=== PATIENT | male | born 1930 | race Caucasian/White ===

== ENCOUNTER 2016-09-21 19:38 | Inpatient (IN) | payer MEDICARE, OTHER ==
--- NOTE | ~2016-09-21 | CO ---
Unit #: [id number] #: [id number] Patient: NINO ARCE SR. [id number] [address] [address] [id number] I MR#: [id number] NAME: NINO ARCE, . ROOM: [facility] Age: 86 Sex: M Admission Date: 09/21/2016 : 1930 Attending Physician: Steven Paul M.D. Primary Care Physician: Monique Buitrago M.D. CONSULTATION REPORT REASON FOR CONSULTATION Elevated troponin with chest pain, possible unstable angina. HISTORY OF PRESENT ILLNESS This 86-year-old male has no prior history of cardiac disease. He came yesterday evening because of short of breath. At that time, he has substernal chest pain. He was given bronchodilators, he is feeling better. He is nos pain free at this moment. He denies any chest pain at this moment, orthopnea, PND, palpitation, or syncope. His troponin at that time was 0.06. EKG also done in the ER showing sinus rhythm with nonspecific ST and T wave changes. PAST MEDICAL HISTORY Positive for COPD, hypertension, diabetes, and hyperlipidemia. PAST SURGICAL HISTORY Abdomen surgery. ALLERGIES He is allergic to nuts and Phenergan. MEDICATIONS He takes Lipitor, lisinopril, and aspirin. FAMILY HISTORY Negative for premature CAD. SOCIAL HISTORY He lives at home. Does not smoke. Does not drink. REVIEW OF SYSTEMS Positive for short of breath, wheezing, asthma. The patient also has bad arthritis and difficulty walking. He also has back pain. All other systems reviewed, they are negative. His second set of troponin was also elevated and it was 0.08. ASSESSMENT 1. The patient has chest pain with elevated troponin. Definitely, the patient is having an unstable angina or acute coronary syndrome. 2. The patient on physical exam has a clinical finding of an ejection systolic murmur with diminished aortic component suggesting significant aortic stenosis. The patient also has diabetes and hypertension and high cholesterol. Unit #: [id number] #: [id number] Patient: NINO ARCE SR. PLAN From a cardiac standpoint of view, the patient will be needing an echo to assess the severity of aortic stenosis. This patient will also need a cardiac catheterization, but that we will do may be on when he is more comfortable. I will add aspirin and statin on top of his medications. Dictated by... Christian Miner/holli TD: 09/23/2016 03:21 JOB #: [id number] CONSULTATION REPORT Page 1 of 1 X Loyd Best MD X CONSULTATION REPORT
--- NOTE | ~2016-09-21 | EKG ---
PATIENT: NINO ARCE UNIT #: [id number] Ventricular Rate: 77 BPM Atrial Rate: 77 BPM P-R Interval: 266 ms QRS Duration: 88 ms Q-T Interval: 426 ms QTC Calculation(Bezet): 482 ms P Hindman: 65 degrees Calculated R Hindman: -4 degrees Calculated T Hindman: 45 degrees Diagnosis Line: Sinus rhythm with 1st degree A-V block Diagnosis Line: Abnormal ECG Diagnosis Line: When compared with ECG of 21-SEP-2016 20:13, Diagnosis Line: (unconfirmed) Diagnosis Line: No significant change was found Diagnosis Line: Confirmed by ANA LUISA BERNAL MD ([id number]) on 09/24/2016 Diagnosis Line: 7:56:11 AM INTERPRETING MD: GABE CLAROS
--- NOTE | ~2016-09-21 | CR63 ---
[facility] A Service of [facility] & [facility] RADIOLOGY TEXT RESULTS PATIENT: NINO ARCE SR. LOCATION: [facility] 328- : 30 UNIT #: [id number] AGE: [address]: Steven Paul MD SEX: M ORDER DR: [id number] [facility] [address] [facility]. [place], [place] [address] [id number] I MR#: [id number] Acc #: [id number] NAME: NINO ARCE, . : 1930 SEX: M STUDY DATE/TIME: 09/22/2016 7:30 UNIT: [address] ROOM: [facility] STUDY DESCRIPTION: CR Chest 2 View Attending Physician: Steven Paul M.D. Ordering Physician: Sudha Villatoro M.D. Primary Care Physician: Dede Buitrago MEDICAL IMAGING REPORT This report is preliminary unless electronic signature is present EXAM PA and lateral chest INDICATIONS Shortness of breath and cough for 5 days. COMPARISON With yesterday. FINDINGS Calcified granulomas within the left base. No new infiltrates. Heart size stable. Degenerative changes thoracic spine. IMPRESSION No active disease Dictated by... Gary Kinney M.D. THIS IS AN ELECTRONICALLY VERIFIED REPORT Gary Kinney M.D. at 09/23/2016 7:41 AM PADMAJA/mahesh TD: 09/22/2016 15:15 JOB #: [id number] MEDICAL IMAGING REPORT Page 1 of 1 COPY
--- NOTE | ~2016-09-21 | HP ---
Unit #: [id number] #: [id number] Patient: NINO ARCE SR. 727148 [address] [place], [place] [address] [id number] Les MR#: [id number] NAME: NINO ARCE, SR. ROOM: 92934 Age: 86 Sex: M Admission Date: 09/21/2016 : 1930 Attending Physician: Sudha Villatoro M.D. Primary Care Physician: Dede Buitrago HISTORY AND PHYSICAL CHIEF COMPLAINT Shortness of breath, chest pain. HISTORY This pleasant 86-year-old male with AODM, hypertension, hyperlipidemia, is admitted for shortness of breath and chest pain. Patient is only a fair historian as he does have some memory issues and family is not present. He states that he was well until three days prior to admission when he developed shortness of breath with a mild nonproductive cough, experienced wheezing, but also substernal nonradiating chest pain which is not pleuritic. He denies history of cardiac disease. He presented to this emergency department this evening with stable vital signs. Chest x-ray was read as COPD but no acute disease. Initial troponin was indeterminate at 0.06, EKG does not show ischemia. In the ER he does have significant bronchospasm, is being given Solu-Medrol, Zithromax, Rocephin along with a bolus of IV fluids. PAST MEDICAL HISTORY 1. Asthma/COPD, I believe followed by Dr. Benson. 2. DJD. 3. Essential hypertension. 4. AODM. 5. Hyperlipidemia. 6. Abdominal surgery. ALLERGIES Nuts and Phenergan. HOME MEDICATIONS Home medications are written as Symbicort, Glyburide, Lipitor, lisinopril, aspirin on our T sheet although I do not have verification. FAMILY HISTORY Negative for CAD. SOCIAL HISTORY The patient lives with his . He stopped smoking in his 20s, does not drink alcohol. REVIEW OF SYSTEMS Notable for shortness of breath, chest pain, wheezing, asthma, hypertension. The patient denies any other medical problems. He is Unit #: [id number] #: [id number] Patient: POGGENBORG,NINO J SR. uncertain what type of abdominal surgery was performed. All other systems were reviewed and are negative. PHYSICAL EXAMINATION GENERAL: Pleasant 86-year-old male who is mildly tachypneic. VITAL SIGNS: Temperature 98. Pulse 82. Respirations 30. Blood pressure 145/86. O2 saturation is 93% on room air. HEENT: Eyes PERRLA, extraocular muscles are intact. Pharynx is benign. NECK: Supple, without adenopathy or thyromegaly. CHEST: Reveals expiratory wheezes throughout. CARDIAC: Normal S1 and S2, with a soft systolic murmur best heard at the apex. ABDOMEN: Bowel sounds are present. Well-healed midline scar noted. Nontender. No hepatosplenomegaly or masses. EXTREMITIES: Without edema. Pedal pulses are markedly diminished. NEUROLOGIC EXAM: Patient is awake, alert. He is fairly oriented but he does seem to be forgetful. His cranial nerves are intact. He has equal strength throughout. DIAGNOSTIC STUDIES LABORATORY: Hematocrit is 37.9, normal white count, platelet count. SMA-12: Glucose 157, potassium 3.3, lactic acid 2.2. Normal BNP. Initial troponin 0.06, second troponin 0.08. IMAGING: Chest x-ray: COPD, no acute disease. CARDIOVASCULAR: EKG sinus rhythm, rate 82, Q noted in lead III. ASSESSMENT 1. Asthma/chronic obstructive pulmonary disease exacerbation with bronchitis versus occult pneumonia. 2. Chest pain with indeterminate troponin. 3. Adult-onset diabetes mellitus. 4. Essential hypertension. 5. Hyperlipidemia. PLANS 1. Aspirin, nitroglycerin paste, repeat cardiac enzymes, obtain echocardiogram in the morning and repeat EKG in the morning. 2. Steroids, antibiotics, DuoNebs and Symbicort. 3. DVT and gastritis prophylaxis. 4. Repeat chest x-ray in the morning. 5. Sliding scale insulin. 6. Verify home medicines. 7. Consultants based on above. Dictated by Christian Pascual/cf TD: 09/21/2016 22:52 JOB #: [id number] Unit #: [id number] #: [id number] Patient: NINO ARCE SR. HISTORY AND PHYSICAL Page 1 of 1 X Sudha Villatoro MD X HISTORY AND PHYSICAL
--- NOTE | ~2016-09-21 | EKG ---
PATIENT: NINO ARCE UNIT #: [id number] Ventricular Rate: 82 BPM Atrial Rate: 82 BPM P-R Interval: 280 ms QRS Duration: 86 ms Q-T Interval: 392 ms QTC Calculation(Bezet): 457 ms P Waddington: 56 degrees Calculated R Waddington: 7 degrees Calculated T Waddington: 51 degrees Diagnosis Line: Sinus rhythm with 1st degree A-V block Diagnosis Line: Abnormal ECG Diagnosis Line: When compared with ECG of 20-AUG-2012 16:42, Diagnosis Line: No significant change was found Diagnosis Line: Confirmed by ANA LUISA BERNAL MD ([id number]) on 09/24/2016 Diagnosis Line: 7:53:14 AM INTERPRETING MD: GABE CLAROS
--- NOTE | ~2016-09-21 | CR72 ---
[facility] A Service of [facility] & [facility] RADIOLOGY TEXT RESULTS PATIENT: NINO ARCE SR. LOCATION: [facility] 328-01 : 30 UNIT #: [id number] AGE: [address]: Steven Paul MD SEX: M ORDER DR: [id number] [place] [address] [facility]. [place], [place] [address] [id number] I MR#: [id number] Acc #: [id number] NAME: NINO ARCE : 1930 SEX: M STUDY DATE/TIME: 09/21/2016 20:47 UNIT: [address] ROOM: [facility] STUDY DESCRIPTION: CR Chest Single View Portable Attending Physician: Steven Paul M.D. Ordering Physician: Ed Doctor [id number] [facility] Primary Care Physician: Monique Buitrago M.D. MEDICAL IMAGING REPORT This report is preliminary unless electronic signature is present EXAM Portable chest INDICATION Shortness of air for 4 days. FINDINGS Single portable AP view of the chest compared to 08/20/2012. Heart and mediastinal contours are unchanged. There is background COPD. No focal consolidation. IMPRESSION Background COPD. No acute findings. Dictated by... Óscar Martinez M.D. THIS IS AN ELECTRONICALLY VERIFIED REPORT Óscar Martinez M.D. at 09/22/2016 3:08 PM Jose TD: 09/22/2016 12:03 JOB #: [id number] MEDICAL IMAGING REPORT Page 1 of 1 COPY
[~2016-09-21 19:38] MED LIST: ALLERGY RELIEF PO; ASPIRIN PO; ASPIRIN81 MG PO; BENZONATATE PO; CARTIA XT PO; CLARITIN10 M1 PO; COMBIVENT INH14.7 G1 IH; COMBIVENT INH14.7 GM INH; DILTIAZEM 24HR120 M1 PO; LIPITOR PO; LIPITOR40 MG PO; LISINOPRIL PO; LISINOPRIL5 MG PO; NEXIUM PO; REGLAN PO; REGLAN10 MG PO; SYMBICORT INH; TAMIFLU75 M1 PO; ZITHROMAX PO
[2016-09-21 20:30] LABS: POC - CKMB 3.2 ng/mL (0.0-7.9); POC - TROPONIN 0.06 ng/mL (<=0.05)
[2016-09-21 20:32] LABS: BASOPHIL# 0.1 X10e3 (0-0.3); BASOPHIL% 0.7 % (0-2.5); EOSINOPHIL# 0.5 X10e3 (0-0.7); EOSINOPHIL% 5.8 % (0.0-7.0); HEMATOCRIT 37.9 % (38.0-50.0); HEMOGLOBIN 12.5 gm/dL (13.0-16.0); LYMPHOCYTE# 1.5 X10e3 (1.0-3.5); LYMPHOCYTE% 18.8 % (17.0-45.0); MEAN PLATELET VOLUME 8.1 FL (6.5-11.5); MONOCYTE# 0.5 X10e3 (0-1.0); NEUTROPHIL# 5.3 X10e3 (1.5-7.1); NEUTROPHIL% 68.7 % (40-75); PLATELET COUNT 160 X10e3 (140-420); RED BLOOD COUNT 4.03 X10e (3.90-5.60); RED CELL DISTRIBUTION WIDTH 14.7 % (11.0-15.5); WHITE BLOOD COUNT 7.7 X10e3 (4.0-10.5)
[2016-09-21 20:35] LABS: DIFF IND NO
[2016-09-21 20:53] LABS: ALBUMIN SERUM 3.7 g/dL (3.5-5.0); BILIRUBIN, DIRECT 0.1 mg/dL (0.0-0.2); BILIRUBIN,INDIRECT 0.6 mg/dL (0.0-0.9); BILIRUBIN,TOTAL 0.7 mg/dL (0.2-2.0); CALCIUM SERUM 8.8 mg/dL (8.4-10.2); GLOM FILT RATE Estimated 67.9 mL/min (>60); POTASSIUM 3.3 mmol/L (3.5-5.1); PROTEIN TOTAL SERUM 7.2 g/dL (6.0-8.3)
[2016-09-21 22:26] LABS: POC - CKMB 1.8 ng/mL (0.0-7.9); POC - TROPONIN 0.08 ng/mL (<=0.05)
[2016-09-22 00:58] LABS: BASOPHIL% 0.5 % (0-2.5); EOSINOPHIL# 0.1 X10e3 (0-0.7); EOSINOPHIL% 0.6 % (0.0-7.0); HEMATOCRIT 38.3 % (38.0-50.0); HEMOGLOBIN 12.5 gm/dL (13.0-16.0); LYMPHOCYTE# 0.5 X10e3 (1.0-3.5); LYMPHOCYTE% 5.8 % (17.0-45.0); MEAN CELL VOLUME 94.3 FL (83-96); MEAN CORPUSCULAR HEMOGLOBIN 30.9 PG (28-34); MEAN CORPUSCULAR HGB CONC 32.7 g/dL (30-36); MEAN PLATELET VOLUME 8.1 FL (6.5-11.5); MONOCYTE# 0.1 X10e3 (0-1.0); MONOCYTE% 1.1 % (3.0-12.0); NEUTROPHIL# 8.7 X10e3 (1.5-7.1); PLATELET COUNT 159 X10e3 (140-420); RED BLOOD COUNT 4.06 X10e (3.90-5.60); RED CELL DISTRIBUTION WIDTH 14.3 % (11.0-15.5); WHITE BLOOD COUNT 9.4 X10e3 (4.0-10.5)
[2016-09-22 00:59] LABS: DIFF IND NO
[2016-09-22 01:16] LABS: INR 1.1; PROTHROMBIN TIME (PATIENT) 11.6 SECONDS (10.0-11.7)
[2016-09-22 01:20] LABS: CALCIUM SERUM 8.3 mg/dL (8.4-10.2); GLOM FILT RATE Estimated 67.9 mL/min (>60); POTASSIUM 3.5 mmol/L (3.5-5.1)
[2016-09-22] MEDS ORDERED: ZESTRIL5 MG PO (09:43)
[2016-09-22] MEDS ORDERED: LIPITOR40 MG PO (09:43)
[2016-09-22] MEDS ORDERED: ASPIRIN81 MG PO (09:44)
[2016-09-23 03:40] LABS: ARTERIAL BLD GAS O2 SATURATION 95.5 % (90.0-100.0); ARTERIAL BLOOD GAS CARBOXY HB 0.3 %sat (0.0-9.0); ARTERIAL BLOOD GAS HCO3 24.4 mmol/L; ARTERIAL BLOOD GAS MET HB 1.1 %sat (0.0-2.0); ARTERIAL BLOOD GAS PCO2 39.3 mmHg (35.0-45.0); ARTERIAL BLOOD GAS PO2 89.6 mmHg (80.0-100); ARTERIAL BLOOD GAS pH 7.401 (7.350-7.450)
[2016-09-23 03:42] LABS: ARTERIAL BLOOD GAS ALLEN TEST NORMAL; ARTERIAL BLOOD GAS ART SITE RIGHT RADIAL; ARTERIAL BLOOD GAS DELIVERY NASAL CANNULA; ARTERIAL DRAW? YES
[2016-09-23 06:47] LABS: BUN/CREATININE RATIO 26.25; CALCIUM SERUM 8.5 mg/dL (8.4-10.2); CREATININE SERUM 0.8 mg/dL (0.6-1.4); GLOM FILT RATE Estimated 80.9 mL/min (>60); POTASSIUM 4.6 mmol/L (3.5-5.1)
[2016-09-23 12:35] LABS: URINE APPEARANCE CLEAR; URINE BILIRUBIN NEG (NEG); URINE BLOOD 2+ (NEG); URINE COLOR YELLOW; URINE GLUCOSE NEG (NEG); URINE KETONE NEG (NEG); URINE LEUKOCYTE ESTERASE TRACE (NEG); URINE NITRATE NEG (NEG); URINE PROTEIN NEG (NEG); URINE SPECIFIC GRAVITY 1.015 (1.003-1.035); URINE UROBILINOGEN 0.2 MG/DL (NEG)
[2016-09-23 12:38] LABS: URINE BACTERIA AUWI NEG (NEGATIVE); URINE SQUAMOUS EPITHELIAL CELL NONE SEEN /[HPF]
[2016-09-24 06:04] LABS: BUN/CREATININE RATIO 28.88; CALCIUM SERUM 8.8 mg/dL (8.4-10.2); CREATININE SERUM 0.9 mg/dL (0.6-1.4); GLOM FILT RATE Estimated 77.1 mL/min (>60); MAGNESIUM 1.9 mg/dL (1.6-3.0); POTASSIUM 4.1 mmol/L (3.5-5.1)
[2016-09-25 07:17] LABS: BUN/CREATININE RATIO 27.5; CALCIUM SERUM 8.8 mg/dL (8.4-10.2); CREATININE SERUM 0.8 mg/dL (0.6-1.4); GLOM FILT RATE Estimated 80.9 mL/min (>60); MAGNESIUM 1.9 mg/dL (1.6-3.0); POTASSIUM 3.8 mmol/L (3.5-5.1)
[2016-09-25] MEDS ORDERED: METOPROLOL TAR25 MG PO (15:01)
[2016-09-25] MEDS ORDERED: LASIX20 MG PO (15:02)
== END 2016-09-25 18:01 | disposition home health service (06) | DRG 281 ==
LOC: CED 19:38 → C3A PCU 22:30 → CEDOF 22:30 → CED 22:31 → CEDOF 22:31 → C3A PCU 22:31 → CEDOF 23:16 → C3A PCU 23:16
PROVIDERS: Emergency Medicine; Internal Medicine
PROC: B24BYZZ Ultrasonography of Heart with Aorta using Other Contrast (ICD-10-PCS; principal; 2016-09-22)
DX: I21.4 Non-ST elevation (NSTEMI) myocardial infarction (principal); J44.1 Chronic obstructive pulmonary disease with (acute) exacerbation; N39.0 Urinary tract infection, site not specified; N30.90 Cystitis, unspecified without hematuria; E11.9 Type 2 diabetes mellitus without complications; I10 Essential (primary) hypertension; R07.9 Chest pain, unspecified; E78.5 Hyperlipidemia, unspecified; Z91.018 Allergy to other foods; Z79.82 Long term (current) use of aspirin; I35.0 Nonrheumatic aortic (valve) stenosis; I44.0 Atrioventricular block, first degree; R33.9 Retention of urine, unspecified
CPT/HCPCS: 36415; 36600; 71010; 71020; 80048; 80076; 81003; 82553; 82803; 82947; 83605; 83735; 83880; 84484; 85025; 85610; 85730; 87040; 87086; 92610; 93005; 93306; 94640; 94664; 94760; 96374; 99285; G8996-GN; G8997-GN; G8998-GN; J0456; J0696; J1650; J1815; J2920; J2930

== ENCOUNTER 2016-11-13 06:04 | Inpatient (IN) | payer MEDICARE, OTHER ==
[~2016-11-13] VITALS: Ht 188 cm; Wt 75.2 kg
--- NOTE | ~2016-11-13 | CO ---
Unit #: [id number] #: [id number] Patient: NINO ARCE SR [id number] [address] [facility]. [place], [place] [address] [id number] I MR#: [id number] NAME: NINO ARCE SR ROOM: 548 Age: 86 Sex: M Admission Date: 11/13/2016 : 1930 Attending Physician: Codie Ocampo M.D. Primary Care Physician: Monique Buitrago M.D. CONSULTATION REPORT REASON FOR CONSULTATION Respiratory failure. HISTORY OF PRESENT ILLNESS The patient is an 86-year-old gentleman, who carries a diagnosis of COPD, chronic respiratory failure, using oxygen at night, who presents with a 2-day history of chest pain. His history is somewhat vague. His pain seemed to come on relatively suddenly. He could not identify any exacerbating or relieving factors. His pain worsened today and presented to the emergency room. It has subsided and when I asked him what helped he said "the medications." He did have some white mucoid secretions in prior to admission. He has had some subjective wheezing. There has been no fever, hemoptysis, or pleurisy. PAST MEDICAL HISTORY Remarkable for hospitalization in September for shortness of breath and chest pain. He was evaluated by Dr. Best at that time. He has a history of COPD, chronic respiratory failure with nocturnal oxygen. In the EHR; hypertension, diabetes, hyperlipidemia, and arthritis. MEDICATIONS At home, he really cannot tell me his medications. He says "my takes care that." The med rec lists include Lipitor, Zestril, aspirin, Lasix, Ranexa, and doxycycline. ALLERGIES To Phenergan and peanuts. SOCIAL HISTORY He quit smoking many years ago. FAMILY HISTORY No familial lung disease. REVIEW OF SYSTEMS Limited. He does have this chest pain. No definite palpitations. He denies nausea, vomiting, abdominal pain, melena, hematochezia, hematemesis, hematuria, dysuria, leg pain, or swelling. There is no history of blood clots of any sort. No headache, dizziness, fever, chills, or weight loss. PHYSICAL EXAMINATION GENERAL: Reveals a gentleman, who is elderly. Unit #: [id number] #: [id number] Patient: NINO ARCE SR VITAL SIGNS: He is afebrile. Pulse 88, respiratory rate is listed as 12 to 38, breathing about 18 at the time of the interview, blood pressure 137/68. He is 6 feet 2 inches, weight 165. HEENT: Pupils are equal, round, and reactive to light. Sclerae anicteric. Head, atraumatic. NECK: Supple. No supraclavicular or cervical adenopathy appreciated. Mucous membranes are quite dry. He has dentures in place. CHEST: Somewhat coarse prolonged expiratory phase posteriorly. No definite wheeze, stridor, and certainly no consolidation. CARDIAC: Reveals distant heart tones. Regular rate and rhythm. No pathologic murmur, rub, or gallop. ABDOMEN: Soft and nontender. No hepatomegaly or rebound. EXTREMITIES: Reveal no clubbing, cyanosis, or edema. No calf tenderness. SKIN: Dry. No acute rash. NEUROLOGIC: Grossly intact. No focal motor or sensory deficits. DIAGNOSTIC STUDIES IMAGING STUDIES: Chest x-ray is unremarkable. CT scan has been performed without contrast and show no definite pneumonia. There is some mild bronchiectasis, particularly in the left lower lobe. Calcified granuloma, left upper lobe. There is a nodular density in the left lower lobe as well. Formal report is pending. LABORATORY RESULTS: Arterial blood gas; pH is 7.4, pCO2 of 40, pO2 of 79 on 5 L. BUN is 28, creatinine is 1.3, magnesium is 1.5 and has been replaced. Troponin is 0.20. BNP is 86. Lactic acid 3.4. INR 1.0. White blood cell count 10.4, hemoglobin 11.8, platelet count 176. Urinalysis only 2 to 5 white cells, 2 to 5 red cells. Blood cultures are performed and are pending. EKG nonspecific ST-T wave changes. IMPRESSION 1. Chest pain, shortness of breath, atypical, but somewhat increased troponin. 2. Possible chronic obstructive pulmonary disease. 3. Acute respiratory failure, now requiring oxygen. 4. Acute kidney injury, likely some degree of chronic kidney disease. 5. History of chronic respiratory failure, nocturnal. 6. History of hypertension, diabetes, and hyperlipidemia. 7. Echocardiogram performed in September revealed moderate to severe aortic stenosis and somewhat elevated RVSP of 46. PLAN Maximize pulmonary status, but I doubt COPD is the primary issues. Cardiology is following and ruling out myocardial infarction, which I suspect is the major issue. Given his renal dysfunction and lack of signs of volume overload, I will hold his Lasix. I will check a D-dimer and if elevated, check lower extremity venous Dopplers and start therapeutic Lovenox. If his renal function improves, consider CT angiogram of the chest. Thank you very much for allowing me to participate in the care of the patient. Dictated by... Max Jean M.D. Unit #: [id number] #: [id number] Patient: SKUHDEEPFAUZIA KELLY,NINO JORDAN/holli TD: 11/14/2016 12:38 JOB #: [id number] CC: Monique Buitrago M.D. CONSULTATION REPORT Page 1 of 1 X Max Jean MD X CONSULTATION REPORT
--- NOTE | ~2016-11-13 | CR72 ---
[facility] A Service of [facility] & [facility] RADIOLOGY TEXT RESULTS PATIENT: NINO ARCE SR LOCATION: [facility] : 30 UNIT #: [id number] AGE: [address]: Martina Bustos MD SEX: M ORDER DR: [id number] [facility] [address] [facility]. [place], [place] [address] [id number] E MR#: [id number] Acc #: [id number] NAME: NINO ARCE SR : 1930 SEX: M STUDY DATE/TIME: 11/13/2016 6:20 UNIT: [facility] ROOM: STUDY DESCRIPTION: CR Chest Single View Portable Attending Physician: Veronika García M.D. Ordering Physician: Veronika García M.D. Primary Care Physician: Monique Buitrago M.D. MEDICAL IMAGING REPORT This report is preliminary unless electronic signature is present EXAM Portable chest, 11/13 COMPARISON 09/22/2016 HISTORY Shortness of air, cough and wheezing for 2 days. FINDINGS A portable view of the chest was obtained. The heart size and vascularity are normal and the lungs are clear except for calcified left lung granulomas. The bones are normal. IMPRESSION No active disease. Dictated by... Cesar Jones M.D. THIS IS AN ELECTRONICALLY VERIFIED REPORT Cesar Jones M.D. at 11/13/2016 1:25 PM Maddy TD: 11/13/2016 08:20 JOB #: [id number] MEDICAL IMAGING REPORT Page 1 of 1 COPY
--- NOTE | ~2016-11-13 | DS ---
Unit #: [id number] #: [id number] Patient: NINO ARCE SR [id number] [address] [address] [id number] I MR#: [id number] NAME: NINO ARCE SR ROOM: 548 Age: 86 Sex: M Admission Date: 11/13/2016 : 1930 Discharge Date: 11/15/2016 Attending Physician: Codie Ocampo M.D. Primary Care Physician: Monique Buitrago M.D. DISCHARGE SUMMARY PRINCIPAL DIAGNOSES 1. Acute hypoxic respiratory failure, now resolved. 2. Acute exacerbation of chronic obstructive pulmonary disease. 3. Acute bronchitis. 4. Acute kidney injury, prerenal, now resolved. 5. Elevated troponin secondary to demand ischemia. No evidence of myocardial infarction. 6. Anxiety. 7. Vitamin B12 deficiency with vitamin B12 level of 214. 8. Steroid-induced leukocytosis. 9. Nocturnal hypoxia. 10. Diabetes mellitus type 2. 11. Hypertension. 12. Dyslipidemia. 13. Osteoarthritis. 14. Mechanical dysphagia. 15. Thrush. CONSULTANTS 1. Dr. Jean, Pulmonology. 2. Dr. Nuñez, Cardiology. PROCEDURES 1. Chest x-ray on November 13, 2016, with hyperinflation and no other acute findings. 2. CT of the chest without contrast on November 13, 2016, again with hyperinflation and no other acute findings. Right renal cyst noted. There is an 8 mm noncalcified nodule in the right mid lobe that is stable since 2012. 3. CT angiogram of the chest on November 14, 2016, again with changes of emphysema. Mediastinal lymph nodes are noted. Old healed granulomatous disease and a benign noncalcified nodule in the right middle lobe. Bibasilar atelectasis and scarring, left greater than right. Right renal cyst noted. 4. Bilateral venous Doppler which was negative for DVT. CLINICAL HISTORY AND HOSPITAL COURSE Mr. Arce is a nice 86-year-old male who presented to the emergency department with chest pain and shortness of breath. Please refer to H and P for further details. In the emergency department, patient was found to be significantly hypoxic but only had mild wheezing upon examination. Chest x-ray was unremarkable. Creatinine was also mildly elevated at 1.3. BNP was also normal, as was white blood cell count. Patient was subsequently admitted for COPD exacerbation. Unit #: [id number] #: [id number] Patient: CLAUDE ,NINO Jean was consulted. A CT scan of the chest was done with findings as noted above. He also underwent CT angiogram of the chest ultimately which was negative for pulmonary embolism. He was placed on empiric IV steroids and antibiotics, and his respiratory status improved significantly. His associated hypoxia is now resolved, and ambulating O2 saturations are 96%. We are going to discharge him on medications as noted below. Patient also had complaints of chest pain, and Cardiology was consulted. Initial troponin was elevated at 0.2 but then trended back down. There were no EKG changes. There are no plans for any intervention, and patient again will receive medications as noted. Patient was also found to have mild dysphagia and underwent video swallow. He was found to have an osteophyte at the C3-C5 region which occasionally impacts his swallow. He is to be discharged on a slick consistency with thin liquids, and he has been instructed regarding this. This may intermittently contribute perhaps to shortness of breath if he is aspirating. However, there are no plans for intervention regarding the osteophytes. Patient today is otherwise clinically stable, ambulating, and will be discharged home. DISCHARGE CONDITION Stable. DISCHARGE STATUS Discharge to home. DISCHARGE MEDICATIONS 1. Ativan 0.25 mg p.o. q.12 hours p.r.n. for anxiety, number given 30. 2. Nystatin swish and swallow 5 mL p.o. 4 times daily for 5 days. 3. Imdur 30 mg p.o. daily with 1 refill. 4. Doxycycline 100 mg p.o. b.i.d. for 5 days. 5. Albuterol MDI 2 puffs 4 times daily p.r.n. for shortness of breath. 6. Breo Ellipta 100/5 mcg 1 puff daily. 7. Prednisone 20 mg tablets 2 tablets daily for 4 days, then discontinue. 8. Lasix 10 mg daily. 9. Lipitor 40 mg at bedtime. 10. Lisinopril 10 mg b.i.d. 11. Aspirin 81 mg daily. DISCHARGE INSTRUCTIONS 1. Patient was instructed to follow a heart-healthy diet and again should follow a slick diet with thin liquids. 2. He can increase activity as tolerated. FOLLOWUP Patient will follow up with his primary care provider, Monique Buitrago, in two weeks. Time spent on discharge today 45 minutes. Dictated by... Codie Ocampo M.D. PATSY/elisa Unit #: [id number] #: [id number] Patient: NINO ARCE SR TD: 11/17/2016 16:39 JOB #: [id number] DISCHARGE SUMMARY Page 1 of 1 X Codie Ocampo MD X DISCHARGE SUMMARY
--- NOTE | ~2016-11-13 | HP ---
Unit #: [id number] #: [id number] Patient: NINO ARCE SR [id number] [address] [id number] MR#: [id number] NAME: NINO ARCE SR ROOM: Age: Sex: M Admission Date: 11/13/2016 : 1930 Attending Physician: Veronika García M.D. Primary Care Physician: Dede Buitrago HISTORY AND PHYSICAL CHIEF COMPLAINT Shortness of air and cough. HISTORY OF PRESENT ILLNESS Mr. Arce is an 86-year-old white male who has a history of COPD, O2 dependent, wears 2 L of O2 nightly. He presents with a couple of days of a sharp, constant discomfort that is in the right chest, radiates over to the left chest, midsternal down into the abdomen. Sometimes the sharp pain is worse than other times. He has chronic shortness of air and chronic productive cough which has worsened in the last couple of days. He denies fevers, he denies chills. Positive bilateral lower extremity edema, positive dyspnea on exertion, positive orthopnea. PAST MEDICAL HISTORY 1. COPD, O2 dependent. 2. Hypertension. 3. Diabetes mellitus. 4. Dyslipidemia. 5. Degenerative joint disease. PAST SURGICAL HISTORY Abdominal surgeries. HOME MEDICATION 1. Lasix 10 mg daily. 2. Atorvastatin 40 mg daily. 3. Lisinopril 10 mg twice daily. 4. Aspirin 81 mg daily. 5. Ranexa 500 mg twice daily. 6. Doxycycline - one day of medication remains. Back in September, patient was on glyburide but currently that is not on his medication list. ALLERGIES Nuts and Phenergan. FAMILY HISTORY Negative for coronary artery disease. SOCIAL HISTORY Patient lives with his . Remote tobacco in his 20s. No alcohol, no illicit drug use. Unit #: [id number] #: [id number] Patient: NINO ARCE SR REVIEW OF SYSTEMS See HPI for sharp chest pains, shortness of air, orthopnea, lower extremity edema. Denies hematuria, denies melena. All others negative. PHYSICAL EXAM GENERAL: Chronically debilitated, elderly, white male who is tachypneic with intercostal muscle use on oxygen but in no acute distress. VITAL SIGNS: Temp 98.5, blood pressure 126/68, respirations 20. Currently on 5 L of O2. Weight is 74.84 kg. In September he was 82 kg. BMI 21. 6 feet 2 inches. HEENT: Normocephalic, atraumatic. No xanthelasma. Pupils equal, round, reactive to light. Extraocular movements intact. Jugular is full. LUNGS: Have rhonchi, crackles in the bases. Intercostal muscle use. HEART: S1, S2. No S3, S4. 2/6 murmur. Positive bowel sounds. 1+ bilateral lower extremity edema, 2+ pulses bilaterally. SKIN: No rash. SPINE: No scoliosis. LABORATORY AND RADIOLOGIC STUDIES IMAGING: Chest x-ray shows no active disease. LABORATORY: Sodium 144, potassium 3.7, chloride 107, CO2 26, BUN 28, creatinine 1.3, glucose 116, magnesium 1.5, total protein 7.2, albumin 3.8, AST 24, ALT 19, alk. phos. is 62. Brain natriuretic peptide 86. Lactic acid 1.5. PT 11.3, INR 1.0, PTT 23.4. Point of care troponin 0.05. Hemoglobin 11.8, hematocrit 35.9, white blood cell count 10.4, platelet count 176. Blood cultures have been sent, results are pending. ASSESSMENT AND PLAN 1. Acute exacerbation of COPD. We will ask pulmonary to see. We will also obtain a CT of the chest. 2. Fluid volume overload. Patient appears to have an element of congestive heart failure. Had a 2D echocardiogram done in September. We will obtain those results. 3. Atypical chest pain in a patient without any prior cardiac history and negative troponin x1. We will repeat his troponin. PLAN 1. We will consult pulmonary, Dr. Barrett. 2. CT of the chest. 3. He will stop his oral Lasix and add IV Lasix, supplement his magnesium, review his echocardiogram. Repeat troponin. We will repeat his troponin at 10:30 this morning, rule out myocardial infarction. PPI. Will give Rocephin 1 g IV x1 today only. Dr. Nuñez to follow for any further recommendations and Dr. Barrett to follow for pulmonary recommendations. Dictated by Lanny Ramirez A.P.R.N. for [facility] [place]/yoli Unit #: [id number] #: [id number] Patient: NINO ARCE SR TD: 11/13/2016 09:40 JOB #: [id number] HISTORY AND PHYSICAL Page 1 of 1 X X HISTORY AND PHYSICAL
--- NOTE | ~2016-11-13 | US84 ---
[id number] [facility] [address] [place], [place] [address] [id number] I MR#: [id number] Acc #: [id number] NAME: NINO ARCE SR : 1930 SEX: M STUDY DATE/TIME: 11/15/2016 8:15 UNIT: [id number] ROOM: 548 STUDY DESCRIPTION: US LE Veins Complete Devante Stdy Attending Physician: Codie Ocampo M.D. Ordering Physician: Codie Ocampo M.D. Primary Care Physician: Monique Buitrago M.D. MEDICAL IMAGING REPORT This report is preliminary unless electronic signature is present EXAM Bilateral lower extremity venous duplex 11/15/2016 HISTORY Shortness of breath for 2 days and elevated D-dimer 913. Evaluate for deep vein thrombosis. TECHNIQUE Venous ultrasound examination of both lower extremities was performed using grayscale, spectral Doppler and color flow Doppler imaging. FINDINGS The examination is negative. There is no evidence of deep venous thrombus from the groin to the lower calf bilaterally. Visualized greater saphenous veins are also patent. IMPRESSION Negative examination. No evidence of lower extremity deep venous thrombosis. Dictated by... Nixon Chester M.D. THIS IS AN ELECTRONICALLY VERIFIED REPORT Nixon Chester M.D. at 11/16/2016 6:36 AM [facility] TD: 11/15/2016 14:50 JOB #: [id number] MEDICAL IMAGING REPORT Page 1 of 1 COPY
--- NOTE | ~2016-11-13 | EKG ---
PATIENT: NINO ARCE UNIT #: [id number] Ventricular Rate: 70 BPM Atrial Rate: 70 BPM P-R Interval: 208 ms QRS Duration: 86 ms Q-T Interval: 476 ms QTC Calculation(Bezet): 514 ms P [place]: 114 degrees Calculated R [place]: -167 degrees Calculated T [place]: 138 degrees Diagnosis Line: Suspect arm lead reversal, interpretation Diagnosis Line: assumes no reversal Diagnosis Line: Sinus rhythm with Premature supraventricular Diagnosis Line: complexes Diagnosis Line: Right superior axis deviation Diagnosis Line: Inferior infarct (cited on or before 13-NOV-2016) Diagnosis Line: Prolonged QT Diagnosis Line: Abnormal ECG Diagnosis Line: When compared with ECG of 13-NOV-2016 22:01, Diagnosis Line: (unconfirmed) Diagnosis Line: Non-specific change in ST segment in Inferior Diagnosis Line: leads Diagnosis Line: Confirmed by POLINA KWAN MD ([id number]) on Diagnosis Line: 11/15/2016 4:57:05 PM INTERPRETING MD: BRUNILDA
--- NOTE | ~2016-11-13 | HP ---
Unit #: [id number] #: [id number] Patient: CLAUDE KELLY,NINO Reyes X Martina Bustos HISTORY AND PHYSICAL
--- NOTE | ~2016-11-13 | CT16 ---
[facility] A Service of [facility] RADIOLOGY TEXT RESULTS PATIENT: NINO ARCE SR LOCATION: [facility] 54-01 : 30 UNIT #: [id number] AGE: [address]: Codie Ocampo MD SEX: M ORDER DR: [id number] [facility] [address] [facility]. [place], [place] [address] [id number] I MR#: [id number] #: [id number] NAME: NINO ARCE SR : 1930 SEX: M STUDY DATE/TIME: 11/14/2016 14:57 UNIT: [facility] ROOM: [facility] STUDY DESCRIPTION: CT Angio Chest for PE Attending Physician: Codie Ocampo M.D. Ordering Physician: Max Jean M.D. Primary Care Physician: Dede Buitrago MEDICAL IMAGING REPORT This report is preliminary unless electronic signature is present EXAM CT of the chest PE protocol with contrast 11/14/2016 INDICATIONS Acute respiratory failure in a 86-year-old male, short of air for 2 days. Elevated D-dimer. TECHNIQUE Contrast enhanced CT scan of the chest PE protocol was performed. Sagittal and coronal 3-D reformats were performed. This CT exam was performed with one or more of the following radiation dose reduction techniques: automatic control, adjustment of mA and/or kV according to patient size, and iterative reconstruction. COMPARISON Noncontrast CT chest same date [address] exam was performed with one or more of the following radiation dose reduction techniques: automatic control, adjustment of mA and/or kV according to patient size, and iterative reconstruction. FINDINGS CT CHEST: There is beam hardening artifact and motion. IV bolus adequate. Aorta demonstrates atherosclerotic change. No dissection. No distinct aneurysm. Major branch vessels from the aortic arch patent. There is no evidence of acute pulmonary embolus in the central pulmonary arterial tree. Included thyroid unremarkable. Probable reactive mediastinal nodes and hilar nodes. Largest right hilar node measures 12 mm. No pericardial effusion with only trace pericardial fluid or thickening at the cardiac apex. There is no axillary adenopathy. Included upper abdomen demonstrates an incidental right renal cyst. The lungs demonstrate emphysema. There is atelectasis and scarring in the STS. [facility] A Service of [facility] RADIOLOGY TEXT RESULTS PATIENT: NINO ARCE SR LOCATION: [facility] 548-01 : 30 UNIT #: [id number] AGE: [address]: Codie Ocampo MD SEX: M ORDER DR: lower lobes. No effusion. There is old healed granulomatous disease. No evidence of pneumonia. There is a subpleural noncalcified nodule in the right middle lobe. This measures about 5 mm. It is unchanged to smaller dating back to 2012 and therefore benign. There are secretions in the mainstem bronchus on the left which may reflect mucus. No pneumothorax. Osseous structures demonstrate thoracic kyphosis and spondylosis. Imaging features of the anterior bridging osteophytes may reflect DISH or ankylosing spondylitis in the appropriate clinical context. IMPRESSION 1. No aortic aneurysm or dissection. 2. No PE. 3. Reactive-appearing mediastinal nodes. Emphysema with old healed granulomatous disease and a benign noncalcified nodule in the right middle lobe dating back to 2012. 4. Basilar atelectasis and scarring left greater than right. 5. Upper abdomen demonstrates a right renal cyst. Dictated by... Mikey Crane M.D. THIS IS AN ELECTRONICALLY VERIFIED REPORT Mikey Crane M.D. at 11/15/2016 11:23 PM JOSEFINA/mahesh TD: 11/15/2016 04:19 JOB #: [id number] MEDICAL IMAGING REPORT Page 1 of 1 COPY
--- NOTE | ~2016-11-13 | EKG ---
PATIENT: NINO ARCE UNIT #: [id number] Ventricular Rate: 72 BPM Atrial Rate: 72 BPM P-R Interval: 238 ms QRS Duration: 88 ms Q-T Interval: 434 ms QTC Calculation(Bezet): 475 ms P [place]: 66 degrees Calculated R [place]: 3 degrees Calculated T [place]: 51 degrees Diagnosis Line: Sinus rhythm with 1st degree A-V block Diagnosis Line: Borderline ECG Diagnosis Line: When compared with ECG of 13-NOV-2016 06:14, Diagnosis Line: ST no longer depressed in Anterior leads Diagnosis Line: Confirmed by POLINA KWAN MD ([id number]) on Diagnosis Line: 11/15/2016 4:59:42 PM INTERPRETING MD: BRUNILDA
--- NOTE | ~2016-11-13 | EKG ---
PATIENT: NINO ARCE UNIT #: [id number] Ventricular Rate: 97 BPM Atrial Rate: 97 BPM P-R Interval: 248 ms QRS Duration: 86 ms Q-T Interval: 368 ms QTC Calculation(Bezet): 467 ms P [place]: 78 degrees Calculated R [place]: 24 degrees Calculated T [place]: 62 degrees Diagnosis Line: Sinus rhythm with marked sinus arrhythmia with 1st Diagnosis Line: degree A-V block Diagnosis Line: Nonspecific ST abnormality Inferior leads Diagnosis Line: Abnormal ECG Diagnosis Line: No previous ECGs available Diagnosis Line: Confirmed by ANA LUISA BERNAL MD ([id number]) on 11/13/2016 Diagnosis Line: 5:51:07 PM INTERPRETING MD: GABE CLAROS
--- NOTE | ~2016-11-13 | CT57 ---
[facility] A Service [facility] RADIOLOGY TEXT RESULTS PATIENT: NINO ARCE SR LOCATION: [facility] : 30 UNIT #: [id number] AGE: [address]: Martina Bustos MD SEX: M ORDER DR: [id number] [place] [facility]. [place], [place] [address] [id number] I MR#: [id number] Acc #: [id number] NAME: NINO ARCE SR : 1930 SEX: M STUDY DATE/TIME: 11/13/2016 11:36 UNIT: [facility] ROOM: [id number] STUDY DESCRIPTION: CT Chest Wo Cont Attending Physician: Martina Bustos M.D. Ordering Physician: Veronika García M.D. Primary Care Physician: Monique Buitrago M.D. MEDICAL IMAGING REPORT This report is preliminary unless electronic signature is present EXAM CT scan of the chest without contrast. HISTORY Short of air starting this morning. COMPARISON 03/26/2012 TECHNIQUE Axial 5-mm images were obtained through the chest without contrast. Sagittal and coronal reconstructions were generated. This CT exam was performed with one or more of the following radiation dose reduction techniques: automatic exposure control, adjustment of mA and/or kV according to patient size, and iterative reconstruction. FINDINGS The lungs are clear, except for calcified granulomas. The thyroid gland is normal. The aorta is normal in size. There is no mediastinal or hilar adenopathy. The visualized portions of the upper abdomen are unremarkable, except for a right renal cyst that measures 4.2 cm in diameter. The bones show degenerative changes. IMPRESSION 1. No active disease. 2. Right renal cyst. 3. There is actually 1 noncalcified nodule, and it is in the right mid lobe and measures 8 mm in diameter. It is unchanged from 2012. Dictated by... Cesar Jones M.D. [facility] A Service [facility] RADIOLOGY TEXT RESULTS PATIENT: NINO ARCE SR LOCATION: [facility] [address]-21 : 30 UNIT #: [id number] AGE: [address]: Martina Bustos MD SEX: M ORDER DR: THIS IS AN ELECTRONICALLY VERIFIED REPORT Cesar Jones M.D. at 11/13/2016 1:26 PM [facility] TD: 11/13/2016 13:22 JOB #: [id number] MEDICAL IMAGING REPORT Page 1 of 1 COPY
--- NOTE | ~2016-11-13 | EKG ---
PATIENT: NINO ARCE UNIT #: [id number] Ventricular Rate: 93 BPM Atrial Rate: 100 BPM QRS Duration: 74 ms Q-T Interval: 416 ms QTC Calculation(Bezet): 517 ms Calculated R [place]: -166 degrees Calculated T [place]: 157 degrees Diagnosis Line: Suspect arm lead reversal, interpretation Diagnosis Line: assumes no reversal Diagnosis Line: Normal sinus rhythm Diagnosis Line: Right superior axis deviation Diagnosis Line: Prolonged QT Diagnosis Line: Abnormal ECG Diagnosis Line: When compared with ECG of 13-NOV-2016 22:01, Diagnosis Line: (unconfirmed) Diagnosis Line: Non-specific change in ST segment in Inferior Diagnosis Line: leads Diagnosis Line: Confirmed by POLINA KWAN MD ([id number]) on Diagnosis Line: 11/15/2016 4:56:11 PM INTERPRETING MD: BRUNILDA
[~2016-11-13 06:04] MED LIST changes: +LASIX20 MG PO; +METOPROLOL TAR25 MG PO; +ZESTRIL5 MG PO
[2016-11-13 06:31] LABS: BASOPHIL# 0.1 X10e3 (0-0.3); BASOPHIL% 0.9 % (0-2.5); EOSINOPHIL# 1.4 X10e3 (0-0.7); EOSINOPHIL% 13.4 % (0.0-7.0); HEMATOCRIT 35.9 % (38.0-50.0); HEMOGLOBIN 11.8 gm/dL (13.0-16.0); LYMPHOCYTE# 2.3 X10e3 (1.0-3.5); LYMPHOCYTE% 22.5 % (17.0-45.0); MEAN CELL VOLUME 94.4 FL (83-96); MEAN CORPUSCULAR HEMOGLOBIN 31.1 PG (28-34); MEAN CORPUSCULAR HGB CONC 32.9 g/dL (30-36); MEAN PLATELET VOLUME 8.2 FL (6.5-11.5); MONOCYTE# 0.6 X10e3 (0-1.0); MONOCYTE% 5.8 % (3.0-12.0); NEUTROPHIL% 57.4 % (40-75); PLATELET COUNT 176 X10e3 (140-420); RED BLOOD COUNT 3.81 X10e (3.90-5.60); RED CELL DISTRIBUTION WIDTH 14.6 % (11.0-15.5); WHITE BLOOD COUNT 10.4 X10e3 (4.0-10.5)
[2016-11-13 06:34] LABS: POC - CKMB 3.5 ng/mL (0.0-7.9); POC - TROPONIN 0.05 ng/mL (<=0.05)
[2016-11-13 06:35] LABS: DIFF IND NO
[2016-11-13 06:52] LABS: PARTIAL THROMBOPLASTIN TIME 23.4 SECONDS (23.5-31.3); PROTHROMBIN TIME (PATIENT) 11.3 SECONDS (10.0-11.7)
[2016-11-13 07:02] LABS: ALBUMIN SERUM 3.8 g/dL (3.5-5.0); BILIRUBIN, DIRECT 0.1 mg/dL (0.0-0.2); BILIRUBIN,INDIRECT 0.1 mg/dL (0.0-0.9); BILIRUBIN,TOTAL 0.2 mg/dL (0.2-2.0); BUN/CREATININE RATIO 21.53; CALCIUM SERUM 9.2 mg/dL (8.4-10.2); CREATININE SERUM 1.3 mg/dL (0.6-1.4); GLOM FILT RATE Estimated 49.4 mL/min (>60); MAGNESIUM 1.5 mg/dL (1.6-3.0); POTASSIUM 3.7 mmol/L (3.5-5.1); PROTEIN TOTAL SERUM 7.2 g/dL (6.0-8.3)
[2016-11-13 08:26] LABS: URINE SOURCE CLEAN CATCH
[2016-11-13 08:44] LABS: POC - CKMB 2.6 ng/mL (0.0-7.9); POC - TROPONIN 0.06 ng/mL (<=0.05)
[2016-11-13 08:51] LABS: URINE APPEARANCE CLEAR; URINE BILIRUBIN NEG (NEG); URINE BLOOD NEG (NEG); URINE COLOR YELLOW; URINE GLUCOSE NEG (NEG); URINE KETONE NEG (NEG); URINE LEUKOCYTE ESTERASE 1+ (NEG); URINE NITRATE NEG (NEG); URINE PROTEIN NEG (NEG); URINE SPECIFIC GRAVITY 1.017 (1.003-1.035); URINE UROBILINOGEN 0.2 MG/DL (NEG)
[2016-11-13 08:53] LABS: URINE BACTERIA AUWI NEG (NEGATIVE); URINE SQUAMOUS EPITHELIAL CELL NONE SEEN /[HPF]
[2016-11-13] MEDS ORDERED: RANEXA500 MG PO (09:01)
[2016-11-13] MEDS ORDERED: DOXYCYCLIN25 MG/5 ML PO (09:04)
[2016-11-13 09:15] LABS: CULTURE INDICATED? NO
[2016-11-13 09:24] LABS: ARTERIAL BLOOD GAS pH 7.406 (7.350-7.450)
[2016-11-13 09:25] LABS: ARTERIAL BLD GAS O2 SATURATION 96.4 % (90.0-100.0); ARTERIAL BLOOD GAS CARBOXY HB 0.5 %sat (0.0-9.0); ARTERIAL BLOOD GAS HCO3 25.4 mmol/L; ARTERIAL BLOOD GAS PCO2 40.5 mmHg (35.0-45.0)
[2016-11-13 09:26] LABS: ARTERIAL BLOOD GAS ALLEN TEST Y; ARTERIAL BLOOD GAS ART SITE LEFT RADIAL; ARTERIAL BLOOD GAS DELIVERY NASAL CANNULA; ARTERIAL DRAW? YES
[2016-11-13 14:10] LABS: CHOLESTEROL 157 mg/dL (0-200); HDL CHOLESTEROL 44 mg/dL (29-75); LDL CHOLESTEROL 103 mg/dL (-130); LDL/HDL RATIO 2 RATIO (0-4); TRIGLYCERIDES 49 mg/dL (10-160)
[2016-11-13 23:31] LABS: MB 3.8 ng/ml
[2016-11-14 06:44] LABS: BASOPHIL% 0.2 % (0-2.5); EOSINOPHIL% 0.1 % (0.0-7.0); HEMATOCRIT 35.5 % (38.0-50.0); HEMOGLOBIN 11.8 gm/dL (13.0-16.0); LYMPHOCYTE# 1.3 X10e3 (1.0-3.5); MEAN CELL VOLUME 94.5 FL (83-96); MEAN CORPUSCULAR HEMOGLOBIN 31.5 PG (28-34); MEAN CORPUSCULAR HGB CONC 33.3 g/dL (30-36); MEAN PLATELET VOLUME 8.5 FL (6.5-11.5); MONOCYTE# 0.4 X10e3 (0-1.0); MONOCYTE% 2.3 % (3.0-12.0); NEUTROPHIL# 14.4 X10e3 (1.5-7.1); NEUTROPHIL% 89.4 % (40-75); PLATELET COUNT 152 X10e3 (140-420); RED BLOOD COUNT 3.76 X10e (3.90-5.60); RED CELL DISTRIBUTION WIDTH 15.1 % (11.0-15.5)
[2016-11-14 06:45] LABS: DIFF IND YES; WHITE BLOOD COUNT 16.1 X10e3 (4.0-10.5)
[2016-11-14 07:29] LABS: CALCIUM SERUM 8.9 mg/dL (8.4-10.2); GLOM FILT RATE Estimated 67.9 mL/min (>60); PHOSPHOROUS 3.9 mg/dL (2.5-4.6)
[2016-11-14 07:57] LABS: PLATELET ESTIMATE NORMAL (NORMAL)
[2016-11-14 11:41] LABS: IRON SERUM 133 ug/dL (45-182); TOTAL IRON BINDING CAPACITY 245 ug/dL (252-460); TRANSFERRIN 175 mg/dL (180-329); TRANSFERRIN SATURATION 54 % (20-50)
[2016-11-15 06:10] LABS: HEMATOCRIT 32.8 % (38.0-50.0); HEMOGLOBIN 10.8 gm/dL (13.0-16.0); MEAN CELL VOLUME 94.3 FL (83-96); MEAN CORPUSCULAR HEMOGLOBIN 31.1 PG (28-34); MEAN PLATELET VOLUME 8.8 FL (6.5-11.5); RED BLOOD COUNT 3.48 X10e (3.90-5.60); RED CELL DISTRIBUTION WIDTH 15.4 % (11.0-15.5); WHITE BLOOD COUNT 16.6 X10e3 (4.0-10.5)
[2016-11-15 06:34] LABS: BUN/CREATININE RATIO 33.33; CALCIUM SERUM 8.9 mg/dL (8.4-10.2); CREATININE SERUM 0.9 mg/dL (0.6-1.4); GLOM FILT RATE Estimated 77.1 mL/min (>60); MAGNESIUM 2.1 mg/dL (1.6-3.0); POTASSIUM 4.8 mmol/L (3.5-5.1)
[2016-11-15] MEDS ORDERED: BREO ELLIPTA 11 EACH INH (15:15)
[2016-11-15] MEDS ORDERED: ALBUTEROL17 GM INH (15:16)
[2016-11-15] MEDS ORDERED: PREDNISONE PO (15:17)
[2016-11-15] MEDS ORDERED: ATIVAN PO (15:18)
[2016-11-15] MEDS ORDERED: NILSTAT PO (15:19)
[2016-11-15] MEDS ORDERED: DOXYCYCLINE HY100 M3 PO (15:20)
[2016-11-15] MEDS ORDERED: IMDUR-ER30 M3 PO (15:20)
[2016-11-15] MEDS ORDERED: B-121000 MC1 PO (15:23)
== END 2016-11-15 17:04 | disposition home health service (06) | DRG 190 ==
LOC: CED 06:04 → CEDOF 08:50 → CED 11:28 → CEDOF 11:28 → C5B 15:00
PROVIDERS: Internal Medicine; Student in an Organized Health Care Education/Training Program
DX: J44.1 Chronic obstructive pulmonary disease with (acute) exacerbation (principal); J96.21 Acute and chronic respiratory failure with hypoxia; N17.9 Acute kidney failure, unspecified; E87.2 Acidosis; I11.0 Hypertensive heart disease with heart failure; I50.32 Chronic diastolic (congestive) heart failure; B37.0 Candidal stomatitis; J44.0 Chronic obstructive pulmonary disease with (acute) lower respiratory infection; E11.9 Type 2 diabetes mellitus without complications; Z87.891 Personal history of nicotine dependence; J20.9 Acute bronchitis, unspecified; E78.5 Hyperlipidemia, unspecified; I35.0 Nonrheumatic aortic (valve) stenosis; M19.90 Unspecified osteoarthritis, unspecified site; Z79.82 Long term (current) use of aspirin; F10.21 Alcohol dependence, in remission; Z82.49 Family history of ischemic heart disease and other diseases of the circulatory system; G89.29 Other chronic pain; R13.10 Dysphagia, unspecified; Z66 Do not resuscitate
CPT/HCPCS: 36415; 36600; 71010; 71250; 71275; 74230; 80048; 80061; 80076; 81003; 82550; 82553; 82607; 82803; 82947; 83036; 83540; 83550; 83605; 83735; 83880; 84100; 84443; 84484; 85025; 85027; 85379; 85610; 85730; 87040; 92526; 92610; 92611; 93005; 93970; 94640; 94760; 97162; 97166; 99291; G8978-GP; G8979-GP; G8980-GP; G8987-GO; G8988-GO; G8989-GO; G8996-GN; G8997-GN; J0696; J1650; J1815; J2270; J2920; J3475; Q9967